=== PATIENT | female | born 2000 | race Caucasian/White ===

== ENCOUNTER 2024-07-16 07:55 | Inpatient (IN) ==
[2024-07-16] MEDS ORDERED: LIDOCAINE 1% LOCAL 20 ML VIAL INFIL PRN (08:12)
[2024-07-16 08:49] LABS: Hemoglobin 13.7 g/dl (12.0-16.0); Mean Corpuscular Hemoglobin 29.9 pg (25.0-34.0); Mean Corpuscular Hgb Conc 34.3 g/dL (32.0-36.0); Mean Corpuscular Volume 87.3 fL (80.0-100.0); Mean Platelet Volume 11.8 fL (9.4-12.4); Platelet Count 167 K/uL (130-400); RDW Coefficient of Variation 13.3 % (11.5-14.5); RDW Standard Deviation 42.4 fL (36.4-46.3); Red Blood Count 4.58 M/uL (4.20-5.40); White Blood Count 10.89 K/ul (4.8-10.8)
[2024-07-16] MEDS: LACTATED RINGER'S 1,000 ML IV PRN (09:45)
--- NOTE | 2024-07-16 10:27 | History & Physical Report ---
Date of Service July 16, 2024 Assessment & Plan (1) Encounter for supervision of normal first : (2) Hypothyroid in , antepartum: (3) PCOS (polycystic ovarian syndrome): Plan Pt is a 23 y/o female currently at 41 WGA with an SHANNAN 07/09/24 as determined by Ultrasound who is here for induction/. Her was complicated by PCOS and hypothyroidism. Balloon johnson placed on 07-15-24. Pt is declining pitocin at this time. She is agreeable to Cytotec for cervical ripening. Cytotec placed vaginally Pt encouraged to ambulate Continue monitoring vitals and FHT Admission and Anticipated Discharge Date Admission Date: July 16, 2024 History of Present Illness Primary Care Provider: NO PCP Pt is a 23 y/o female currently at 41 WGA with an SHANNAN 07/09/24 as determined by Ultrasound who is here for induction/. Her was complicated by PCOS and hypothyroidism. None contractions; regular movement; no fluid loss; no bloody show External FHT and external uterine monitors used; Category 1 tracing; moderate FHT variability. Had regular appointments with OB. Labs: (12/27/23) Blood type: A positive Antibody screen: negative H.7 (today) Hct: 40% (today) WBC: 10.89 (today) Plt: 167 (today) Rubella: Immune VDRL/RPR: Nonreactive Gonorrhea: Not detected Chlamydia: Not detected HIV: Negative HbSAg: Nonreactive GBS: negative Other screens: cff-DNA: (see scanned documents) Allergies Allergy/AdvReac Type Severity Reaction Status Date / Time No Known Allergies Allergy Verified 07/16/24 08:18 Home Medications Medication Instructions Recorded Confirmed Type levothyroxine 75 mcg tablet 75 mcg PO DAILY #30 tabs 03/11/24 07/16/24 Rx aspirin [Baby Aspirin] 81 mg PO DAILY 04/10/24 07/16/24 History Patient History Medical History (Updated 07/16/24 @ 10:43 by Ramona Burnett MD, FACOG) Lissette-Wiedemann syndrome Hypothyroid Varicella vaccination Surgical History History of oral surgery gum surgery Family History Denies family history of Ovarian cancer Breast cancer Colorectal cancer Uterine cancer Social History (Updated 12/09/23 @ 15:13 by Lydia Zurita) Smoking Status: Never smoker Do You Dip or Chew Tobacco: No; Hx Alcohol Use: No Hx Substance Use: No Preferred Language: Sami Communication Ability: Effective Template Worker Required: No Beliefs That Will Affect Care: None marital status: marital status details: Frankie Regan (31) [phone] Current Living Situation: Spouse Current Living Situation Comment: lives with spouse, dogs current occupational status: employed current occupation: Investment Officer Feels Safe at Home: Yes Assistive Devices: None Review of Systems Denies fever, chills, sweats Denies shortness of breath, difficulty breathing, chest pain, palpitations, chest pressure. Denies breast pain. Denies dysuria. Denies headache or changes in vision. Physical Exam Physical Exam: General: Alert, oriented. No acute distress. Cardiac: Regular rate and rhythm, no murmurs/rubs/gallops. Respiratory: Clear to auscultation bilaterally a/p, no wheezes/rales/rhonchi. No increased work of breathing. Symmetrical chest rise. No respiratory distress. Abdomen: Gravid Pelvic: Dilation _cm; Effacement _; Station _ per Dr. Larsen Lower Extremities: No lower extremity edema or swelling. No deep calf pain. Berenice's negative bilaterally Results & Data Vital Signs (Past 12 Hours) Vital Signs Temp Pulse Resp BP 07/16/24 08:23 36.6 C 87 18 122/82 07/16/24 08:17 87 122/82 Code Status & VTE Plan VTE Prophylaxis Plan VTE Prophylaxis will be ordered: No
--- NOTE | 2024-07-16 10:45 | History & Physical Report ---
Date of Service July 16, 2024 Assessment & Plan (1) Post term at 41 weeks gestation: Plan: given cervical exam, AROM not possible at this time- also, she is having intermittent runs of mild contractions she is not feeling. will hydrate and reassess ctns to see if cytotec is an option. Patient is agreeable to this plan. Plan is to AROM when feasible- she understands that depending on contraction pattern, she may need augmentation with pitocin instead of cytotec. she would like to avoid if at all possible. Admission and Anticipated Discharge Date Admission Date: July 16, 2024 History of Present Illness Primary Care Provider: NO PCP Patient is a 23 yo female [id number] 07/09/24 who presents for IOL because of post term at 41 weeks gestation. she had a cervical balloon placed last evening and if fell out this morning.no increase in contractions overnight- just the usual ctns she has been feeling. some bloody show after the cervical balloon. GBS -negative otherwise uncomplicated. Patient wishes to proceed with as little intervention as possible. We discussed options and limitations with each protocol, including AROM if possible, cytotec both vaginally and po routes and IV pitocin. plan reviewed. Allergies Allergy/AdvReac Type Severity Reaction Status Date / Time No Known Allergies Allergy Verified 07/16/24 08:18 Home Medications Medication Instructions Recorded Confirmed Type levothyroxine 75 mcg tablet 75 mcg PO DAILY #30 tabs 03/11/24 07/16/24 Rx aspirin [Baby Aspirin] 81 mg PO DAILY 04/10/24 07/16/24 History Patient History Medical History (Updated 07/16/24 @ 10:43 by Ramona Burnett MD, FACOG) Lissette-Wiedemann syndrome Hypothyroid Varicella vaccination Surgical History History of oral surgery gum surgery Family History Denies family history of Ovarian cancer Breast cancer Colorectal cancer Uterine cancer Social History (Updated 12/09/23 @ 15:13 by Lydia Zurita) Smoking Status: Never smoker Do You Dip or Chew Tobacco: No; Hx Alcohol Use: No Hx Substance Use: No Preferred Language: French Communication Ability: Effective Solar Development Engineer Required: No Beliefs That Will Affect Care: None marital status: marital status details: Frankie Regan (31) [phone] Current Living Situation: Spouse Current Living Situation Comment: lives with spouse, dogs current occupational status: employed current occupation: Drawer In Hand Feels Safe at Home: Yes Assistive Devices: None Review of Systems All systems reviewed & are unremarkable except as noted in HPI & below Physical Exam Constitutional: WD/WN, vitals as above Psychiatric: A+Ox3, euthymic affect Genitourinary: OB Exam Abdomen: + vertex, + estimated weight (8-9 pounds) and + irregular contractions Manual OB Exam: + cervical dilation (3), + cervical effacement (6) 60% and + station (-3 but applied to cervix) OB Exam Monitor Tracing: + external FHT monitor used, + external uterine monitor used, + category I and + normal FHT variability Results & Data Vital Signs (Past 12 Hours) Vital Signs Temp Pulse Resp BP 07/16/24 08:23 97.9 F 87 18 122/82 07/16/24 08:17 87 122/82 Code Status & VTE Plan VTE Prophylaxis Plan VTE Prophylaxis will be ordered: No Coding Level of Care Code None Diagnoses Post term at 41 weeks gestation O48.0; Z3A.41
[2024-07-16] MEDS: OXYTOCIN 30 UNITS/NSS 30 UNITS/500 ML BAG IV PRN (11:32)
[2024-07-16] MEDS: miSOPROStoL 25 MCG TAB PV SCH (12:10)
[2024-07-16] MEDS: diphenhydrAMINE 50 MG/ML VIAL IV STA (20:16)
--- NOTE | 2024-07-16 21:36 | Anesthesiology Consultation ---
Date of Service July 16, 2024 Assessment & Plan Chart Review Chart Review: Acceptable Risk for Labor Epidural Consults Requested none ASA ASA2 Proposed Anesthesia Anesthesia Type: Labor Epidural Risk / Benefits Reviewed With: PT / POA / Parent / Guardian, Accepts Plan and Informed Consent Obtained History Height/Weight Height: 5 ft 8.5 in Weight: 92.533 kg Allergies Allergy/AdvReac Type Severity Reaction Status Date / Time No Known Allergies Allergy Verified 07/16/24 08:18 Medications Home Medications Medication Instructions Recorded Confirmed Last Taken levothyroxine 75 mcg tablet 75 mcg PO DAILY #30 tabs 03/11/24 07/16/24 07/16/24 05:30 aspirin [Baby Aspirin] 81 mg PO DAILY 04/10/24 07/16/24 07/15/24 23:00 Active Medications Generic Name Dose Route Start Last Admin Trade Name Freq PRN Reason Stop Dose Admin Oxytocin 30 units in 500 mls @ 15 mls/hr 07/16/24 08:12 07/16/24 19:06 Pitocin 30 Units/Nss IV 07/18/24 08:11 0.9 units/hr .Q24H PRN 15 mls/hr Labor Induction/Augmentation Titration Protocol 0.9 UNITS/HR Lactated Ringer's 1,000 mls @ 125 mls/hr 07/16/24 08:12 07/16/24 16:00 Lr IV 07/18/24 08:11 125 mls/hr .Q8H PRN Administration L&D Protocol Protocol Misoprostol 25 mcg 07/16/24 11:00 07/16/24 12:10 Misoprostol 25 Mcg Tab PV 08/15/24 10:59 Not Given BID SANYA Past Medical History Medical History Lissette-Wiedemann syndrome Hypothyroid Varicella vaccination Exercise / Class Metabolic Activity II 4-5 Yardwork/Stairs/Walk up hill Past Family History Family History Denies family history of Ovarian cancer Breast cancer Colorectal cancer Uterine cancer Past Surgical History Surgical History History of oral surgery gum surgery Past Anesthesia History No Hx of Anesthesia Complications and No Family Hx of Anesthesia Complications History of PONV No Hx of PONV and No Hx of Motion Sickness Social History Smoking Status: Never smoker Do You Dip or Chew Tobacco: No Hx Alcohol Use: No Hx Substance Use: No substance use type: does not use Physical Exam Vital Signs Last Vital Signs Temp 98.4 F 07/16/24 19:20 Pulse 83 07/16/24 19:07 Resp 18 07/16/24 19:20 BP 139/79 07/16/24 19:07 ENMT Mouth: no dentition abnormality Thyromental Distance: > or= 3.5 Finger Breadths Mallampati Class: II Neck normal visual inspection Respiratory normal respiratory effort Auscultation: lungs clear to auscultation bilaterally Cardiovascular Rate/Rhythm: regular rate and regular rhythm Testing Laboratory Results 07/16/24 08:24
[2024-07-16] MEDS: LIDOCAINE 2%/EPINEPHRINE 1:200,000 20 ML PF ONE (21:58)
[2024-07-16] MEDS: BUPIVACAINE 0.25% PF 30 ML VIAL ONE (21:59)
[2024-07-16] MEDS: fentaNYL citrate PF 100 MCG/2 ML VIAL ONE (21:59)
[2024-07-16] MEDS: fentANYL 2 MCG/ML BUPIVacaine 0.125%-NSS 100ML BAG ONE (22:00)
[2024-07-16] MEDS: SODIUM CHLORIDE 0.9% PF INJ 10 ML VIAL ONE (22:02)
[2024-07-16] MEDS ORDERED: fentANYL 2 MCG/ML BUPIVacaine 0.125%-NSS 100ML BAG EPI PRN (22:05)
[2024-07-16] MEDS ORDERED: NALOXONE HCL 0.4 MG/1 ML VIAL/CARP IV PRN (22:05)
[2024-07-16] MEDS ORDERED: diphenhydrAMINE 50 MG/ML VIAL IV PRN (22:05)
[2024-07-16] MEDS ORDERED: BUPIVACAINE 0.25% PF 30 ML VIAL EPI PRN (22:05)
[2024-07-16] MEDS ORDERED: ROPIVACAINE 0.5% PF 5 MG/ML 20 ML VIAL EPI PRN (22:05)
[2024-07-16] MEDS ORDERED: LIDOCAINE 2% MPF LOCAL 5 ML VIAL EPI PRN (22:05)
[2024-07-16] MEDS ORDERED: ePHEDrine sulfate 50 MG/ML AMP IV PRN (22:05)
[2024-07-16] MEDS ORDERED: SODIUM CHLORIDE 0.9% PF INJ 10 ML VIAL EPI PRN (22:05)
[2024-07-16] MEDS ORDERED: ONDANSETRON INJ 2 MG/ML 2 ML VIAL IV PRN (22:05)
[2024-07-16] MEDS ORDERED: NALBUPHINE HCL INJ 10 MG/ML AMP IV PRN (22:05)
[2024-07-16] MEDS ORDERED: NALOXONE HCL 1 MG in SODIUM CHLORIDE 0.9% 1,000 ML IV PRN (22:05)
[2024-07-16] MEDS ORDERED: fentaNYL citrate PF 100 MCG/2 ML VIAL EPI PRN (22:05)
[2024-07-16] MEDS: LIDOCAINE 2%/EPINEPHRINE 1:200,000 20 ML PF EPI STA (22:47)
[2024-07-16] MEDS: ePHEDrine sulfate 50 MG/ML AMP ONE (22:47)
[2024-07-16] MEDS: fentaNYL citrate PF 100 MCG/2 ML VIAL EPI STA (22:47)
[2024-07-16] MEDS: SODIUM CHLORIDE 0.9% PF INJ 10 ML VIAL EPI STA (22:47)
[2024-07-16] MEDS: BUPIVACAINE 0.25% PF 30 ML VIAL EPI STA (22:47)
[2024-07-17] MEDS: OXYTOCIN 30 UNITS/NSS 30 UNITS/500 ML BAG IV PRN (03:14)
--- NOTE | 2024-07-17 04:18 | Delivery Summary ---
Vaginal Delivery Summary Date of Service July 17, 2024 Vaginal Delivery Summary and 1st Degree LAC (vaginal/ L labial lacerations repaired) Patient is a 23-year-old [id number] female who presented at 41 weeks for induction of labor because of postterm . She had a cervical balloon placed successfully the night prior to the induction admission. Pitocin augmentation was begun and membranes were ruptured at 6 cm for clear fluid. She progressed to an anterior lip but could no longer tolerate the contractions. She received effective epidural analgesia and was allowed to rest. She progressed to full dilation and +1 station. She pushed effectively over intact perineum for delivery of a viable female . After the head was delivered, there was a tight nuchal cord which was clamped and cut prior to delivering the rest of the infant. The infant was initially placed on the mother's abdomen for evaluation and stimulation. Because of poor tone and respiratory effort, she was taken to the baby bed for further stimulation at which point she was vigorous crying and moving all 4 limbs. After cord blood was obtained, the placenta was expressed intact with a three-vessel cord. bleeding was controlled with dilute Pitocin and fundal massage. A first-degree vaginal and left labial lacerations were repaired with 3-0 chromic in the usual fashion. There was a superficial abrasion on the right labia minora which was controlled with direct pressure and did not require repair. QBL was 452 mL. Mother and were doing well after delivery. [facility] [place] Delivery Charge Delivery Type Details: and 1st Degree LAC (vaginal/ L labial lacerations repaired)
[2024-07-17] MEDS ORDERED: HYDROCORTISONE ACETATE 25 MG SUPP PR PRN (05:24)
[2024-07-17] MEDS: BENZOCAINE 20% SPRY 85 APPLN/85 GM CAN EXT PRN (06:16)
[2024-07-17] MEDS: LEVOTHYROXINE SODIUM 75 MCG TABLET PO SCH (06:16)
[2024-07-17] MEDS: DIPHTHER/TETAN/PERTUS Vaccine (Tdap, Adol/Adult) 0.5mL IM ONE (06:17)
--- NOTE | 2024-07-17 08:25 | Anesthesia Procedure Note ---
Date of Service July 17, 2024 Anesthesia Post Epidural Note Vital Signs Vital Signs: Temp Pulse Resp BP Pulse Ox O2 Del Method 37.1 C 88 16 119/70 98 Room Air 07/17/24 07:07/17/24 07:07/17/24 07:10 07/17/24 07:10 07/17/24 07:07/17/24 07:10 Notes Mental Status: alert / awake / arousable and participated in evaluation Nausea / Vomiting: adequately controlled Pain: adequately controlled Airway Patency, RR, SpO2: stable & adequate BP & HR: stable & adequate Hydration State: stable & adequate Neuraxial Anesthesia: was administered and sensory block is resolving Anesthetic Complications: no major complications apparent and Pt Satisfied with anesthetic care Epidural: Removed without complications and With tip intact
[2024-07-17] MEDS: PRENATAL VITAMIN 1 TAB PO SCH (08:48)
[2024-07-17] MEDS: DOCUSATE SODIUM 100 MG CAP PO SCH (08:49)
[2024-07-17] MEDS: IBUPROFEN 600 MG TAB PO PRN (09:36)
[2024-07-17] MEDS: ACETAMINOPHEN 325 MG TAB PO PRN (12:48)
--- NOTE | 2024-07-18 05:31 | Obstetrical Progress Note ---
Date of Service July 18, 2024 Assessment & Plan (1) Encounter for supervision of normal first : (2) Hypothyroid in , antepartum: (3) PCOS (polycystic ovarian syndrome): Plan Pt is 23 yo post- day 1 s/p at 41w0d. complicated by hypothyroidism Encourage ambulation and breast feeding Tylenol 650mg and Ibuprofen 600mg as needed for pain Monitor vitals and Hbg Upon discharge, pt to follow up with Dr. Burnett in 6 weeks. Admission and Anticipated Discharge Date Admission Date: July 16, 2024 Supervising Physician Co-Signing Physician Notes Resident Physician Supervision Note: I interviewed and examined the patient. Discussed with Dr. Edwards and agree with findings and plan as documented in the note. Any exceptions or clarifications are listed here: Doing overall well. Baby is having sugar issues with IV. Routine care. Documented By: Coby Portillo MD, FACOG Subjective Pt is 23 yo post- day 1 s/p at 41w0d. complicated by hypothyroidism Ambulation:In and out of room Voiding:voiding normally Passing gas: yes BM: no Diet tolerance:regular diet Lochia:bloody, no clots Feeding type: breast Current pain level: 3-5/10 at bilateral breasts and perineum,reports no significant improvement with ibuprofen Resting comfortably this morning in NAD. Noting significant swelling in her bilateral lower legs and feet Denies FRIAS, CP, SOB, N/V/D, LE pain. Review of Systems Review of Systems: As per HPI Physical Exam Constitutional: WD/WN, vitals as above Respiratory: normal respiratory effort, lungs clear to auscultation Cardiovascular: Rate/Rhythm: regular rate and regular rhythm Heart Sounds: no murmur Extremities: + edema; no calf tenderness Gastrointestinal (Abdomen): normal bowel sounds, soft, nontender, no hepatosplenomegaly Uterine fundus firm and at level of umbilicus Neurologic: PERRL, EOMI, accommodation nl, no face palsy, no dysarthria Moving all 4 extremities on command Psychiatric: A+Ox3, euthymic affect Results & Data Vital Signs (Past 12 Hours) Vital Signs Temp Pulse Resp BP O2 Del Method 07/18/24 03:30 36.8 C 80 14 124/77 Room Air 07/17/24 23:44 36.4 C L 75 16 131/74 Room Air 07/17/24 21:02 36.4 C L 90 14 136/80 Room Air Resident Activity Tracking Resident Involvement: Resident Care Provided Care Provided: Adult Hospital Medicine
[2024-07-18 07:27] LABS: Hematocrit (blood only) 35.4 % (37.0-47.0); Hemoglobin 11.9 g/dl (12.0-16.0); Mean Corpuscular Hemoglobin 29.8 pg (25.0-34.0); Mean Corpuscular Hgb Conc 33.6 g/dL (32.0-36.0); Mean Corpuscular Volume 88.5 fL (80.0-100.0); Mean Platelet Volume 12.2 fL (9.4-12.4); Platelet Count 167 K/uL (130-400); RDW Coefficient of Variation 13.5 % (11.5-14.5); RDW Standard Deviation 43.5 fL (36.4-46.3); White Blood Count 14.64 K/ul (4.8-10.8)
[2024-07-18 09:02] VITALS: RESP 18
[2024-07-18] MEDS: bisacodyL 5 MG TABEC PO SCH (19:47)
[2024-07-18] MEDS ORDERED: Nursing to Pharmacy Communication SCH (23:45)
[2024-07-18] MEDS: PRENATAL VITAMIN 1 TAB PO SCH (23:54)
[2024-07-19 00:01] VITALS: BP 115/78; PULSE 85; TEMP 97.5; O2SAT 98
[2024-07-19] MEDS ORDERED: bisacodyL 10 MG SUPP PR PRN (05:24)
[2024-07-19 07:57] LABS: Hematocrit (blood only) 34.2 % (37.0-47.0); Hemoglobin 11.4 g/dl (12.0-16.0)
--- NOTE | 2024-07-19 08:46 | Obstetrical Progress Note ---
Date of Service July 19, 2024 Assessment & Plan (1) Encounter for care and examination after delivery: Day 2 status post vaginal delivery. Patient doing well. Stable for discharge. Subjective Ambulation: ambulating normally Voiding: no voiding problems Passing Gas:: Yes Diet Tolerance:: regular diet Lochia:: Moderate Feeding Type:: breast feeding Physical Exam Portions of exam per nurse Constitutional WD/WN, vitals as above Respiratory normal respiratory effort; no respiratory distress and no labored breathing Cardiovascular Extremities: no calf tenderness Genitourinary OB Exam Abdomen: + fundal height Fundus: + firm and + relation to umbilicus (Below); not tender or not boggy Results & Data Vital Signs (Past 12 Hours) Vital Signs Temp Pulse Resp BP Pulse Ox O2 Del Method 07/19/24 00:00 36.4 C L 85 18 115/78 98 Room Air
== END 2024-07-19 10:30 | disposition home or self-care (01) | DRG 807 ==
LOC: 4S1 07:55 → 4E2 07-17 06:24